=== PATIENT | male | born 1955 ===

== ENCOUNTER 2017-09-24 10:49 | Day surgery (SDC) | payer OTHER ==
[2017-09-21 13:35] VITALS: BMI 29.2
[2017-09-24] MEDS ORDERED: ceFAZolin 1 gm in NS 1 GM/100 ML BAG IVPB ONE (14:14)
[2017-09-24] MEDS ORDERED: Iohexol 240 (50 ml) ONE (14:14)
[2017-09-24] MEDS ORDERED: Oxycodone/Acetaminophen 5/325 mg Tab PO PRN (14:48)
[2017-09-24] MEDS ORDERED: Ciprofloxacin 400mg/200ml D5W 400 MG/200 ML BAG IVPB SCH (15:00)
[2017-09-24 16:04] VITALS: BP 127/78; RESP 16; TEMP 97
[2017-09-24 16:06] VITALS: PULSE 63; O2SAT 99
--- NOTE | 2017-09-25 17:09 | RAD ---
HISTORY: LEFT HYDRONEPHROSIS COMPARISON: No prior. FINDINGS: BOWEL: Normal. No obstruction. No free air. BONES: Normal. OTHER FINDINGS: None. IMPRESSION: No active disease.
--- NOTE | 2017-11-08 18:07 | HP ---
REASON FOR ADMISSION: For stent insertion. Stent insertion in the left kidney in preparation for surgical resection. HISTORY OF PRESENT ILLNESS: The patient is a very pleasant gentleman who presents with a mass in his scrotum. It looks essentially as a possible hydrocele. 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 I explained to the patient in detail, he will need surgical resection. Today, he is here just for a stent insertion and then he will need further surgery. PAST MEDICAL AND SURGICAL HISTORY: As follows: No history of NV or CVA. SOCIAL HISTORY: Essentially unremarkable. REVIEW OF SYSTEMS: Listed above. No weight loss, chest pain, or shortness of breath. No constitutional complaints (this is good news I ). My concern is again with this large mass. There are more concerns. See the plan listed below the addendum. The surgical PHYSICAL EXAMINATION: GENERAL: Well-developed, well-nourished male. In no apparent distress. VITAL SIGNS: Noted. NECK: No cervical or axillary lymphadenopathy. LUNGS: Clear. HEART: S1 and S2. ABDOMEN: Soft. There is no mass like effect easily felt. GENITOURINARY: His left hemiscrotum has a large solid mass that does not transilluminate light. The right hemiscrotum is relatively within normal limits. RECTAL: Fragile cyst mentioned now. It is a relatively normal prostate exam. DIAGNOSTIC DATA: CT scan, I had a chance to review the films at length. DIAGNOSES: Left hydronephrosis and a mass in the abdomen and pelvis, going down to the scrotum. PLAN: So at this time, we discussed options. Today, we are just placing a stent in preparation for surgical extirpation. My plan is to have general surgeon. I discussed this with the patient. I have to find a surgeon. The patient came to me from far away based on insurance reasons. I explained this to the patient in detail. The plan for today is a stent insertion, but afterwards, we need to get it quickly through a general surgeon and then make further recommendations and plans because he needs surgical exploration and removal urology assistance planning but we need general surgeon involved. ADDENDUM: See the operative note. Actually in fact it was so large, I was not even able to gain access and see the ureteral orifice and place the stent. Chad Barnes MD
--- NOTE | 2017-11-08 18:10 | OP ---
PROCEDURE DATE: 09/24/2017 PREOPERATIVE DIAGNOSES: Left hydronephrosis, abdominal mass, and scrotal mass. POSTOPERATIVE DIAGNOSES: Left hydronephrosis, abdominal mass, and scrotal mass. PROCEDURE: Cystoscopy and attempted insertion of a left double-J stent. COMPLICATIONS: There were no complications. BLOOD LOSS: Less than 10 mL. FINDINGS: 1. Normal anterior urethra. 2. No strictures. 3. It is too difficult even to get to the orifice and identify the mass and place the stent. See the plans at the end. INDICATIONS: See history and physical for this procedure. A very pleasant gentleman, who is here for cystoscopy and stent insertion, but we were not able to do such. The patient has a large mass that needs to be suctioned. We are planning to put a stent to protect the ureter, but in fact, we cannot even get in. DESCRIPTION OF PROCEDURE: After obtaining informed consent, the patient was placed on the table. Routine monitors were placed. Time-out was called. We confirmed the patient positioning. Cystoscope via the urethra. The patient came to me from far away actually. This have to do with insurance, in fact, while he was here before we started the procedure today, I offered him. He said to me do I know any urologist that are in his community or any general surgeons in his community. I explained to him that, in fact we should reconsider. That would may be beneficial for he and his . Then after discussing the options back and forth, he wanted to proceed. As I said, we placed the stent and then afterward, perhaps we will have him see another general surgeon and they can get a urologist at that time. After discussing although the options with the patient, he is now here for the above procedure. The cystoscope via the urethra. The anterior urethra is normal, and the prostatic verumontanum is visually occlusive, but there is a mass like effect pushing on the back. To the point that I could not push to gain access to the bladder itself. I tried gently, did not want to start bleeding. So at this point, after trying different positions, trying to adjust accordingly, I could not gain good access properly into the urinary bladder. We terminated the procedure. Overall, the patient tolerated the procedure well, but he needs further treatment. See the plans listed below. There were no complications at this point. ADDENDUM: The patient needs surgical extirpation. We need to get a general surgeon involved. I explained this to the patient in his [place]ian language after the procedure as well and then follow up. We will follow. Chad Barnes MD
== END 2017-09-24 16:04 | disposition home or self-care (01) ==
LOC: C.SDS 10:49
PROVIDERS: ATTEND Urology
DX: N13.30 Unspecified hydronephrosis (principal); R19.00 Intra-abdominal and pelvic swelling, mass and lump, unspecified site; I10 Essential (primary) hypertension
CPT/HCPCS: 52000; 74018; C1758; C1769; J0690; J0744

== ENCOUNTER 2017-11-21 11:59 | Inpatient (IN) | payer OTHER ==
[2017-11-21 11:59] VITALS: BMI 29.2
--- NOTE | 2017-11-21 12:41 | C.PDOC ---
History Of Present Illness 62yo male, presents to ED for evaluation of wrosening testicular pain since last night. Patient has had testicular swelling for the past 1.5 years, and swelling has been rapidly increasing since August of this year. Patient is being followed by Dr. Chela Barnes and patient is currently pending outpatient studies. Per family, the patient is also pending a "procedure" on an undetermined date. Patient reports presenting today due to unbearable pain. Patient states the pain is worse with walking and sitting but better when he is laying down. He denies any abdominal pain, nausea, vomiting, dysuria, hematuria , fever or chills. No other medical complaints. Time Seen by Provider: 11/21/17 12:33 Chief Complaint (Nursing): Male Genitourinary History Per: Patient, Family History/Exam Limitations: no limitations Onset/Duration Of Symptoms: Persistent, Worse Since (last night) Current Symptoms Are (Timing): Still Present Quality Of Discomfort: "Pain" Associated Symptoms: denies: Fever, Chills, Nausea, Vomiting, Diarrhea, Urinary Symptoms Past Medical History Reviewed: Historical Data, Nursing Documentation, Vital Signs Vital Signs: Last Vital Signs Temp 98.1 F 11/21/17 12:14 Pulse 79 11/21/17 12:14 Resp 20 11/21/17 12:14 BP 137/70 11/21/17 12:14 Pulse Ox 97 11/21/17 15:55 - Medical History PMH: HTN Denies: Chronic Kidney Disease Surgical History: No Surg Hx Family History: States: No Known Family Hx - Social History Hx Alcohol Use: No Hx Substance Use: No - Immunization History Hx Tetanus Toxoid Vaccination: No Hx Influenza Vaccination: No Hx Pneumococcal Vaccination: No Review Of Systems Except As Marked, All Systems Reviewed And Found Negative. Constitutional: Negative for: Fever, Chills Gastrointestinal: Negative for: Nausea, Vomiting, Abdominal Pain Genitourinary: Positive for: Other (testicular pain). Negative for: Dysuria, Frequency, Hematuria Physical Exam - Physical Exam Appears: Non-toxic, Other (mild painful distress) Skin: Normal Color, Warm, Dry Head: Normacephalic Eye(s): bilateral: Normal Inspection Neck: Normal ROM, Supple Chest: Symmetrical Cardiovascular: Rhythm Regular Respiratory: Normal Breath Sounds Gastrointestinal/Abdominal: Normal Exam, Soft, No Tenderness Male Genital: Testicular Tenderness (diffuse), Scrotal Swelling (canteloupe sized swelling, no erythema or lesions noted. ) Extremity: Normal ROM Neurological/Psych: Oriented x3 ED Course And Treatment - Laboratory Results Result Diagrams: 11/21/17 14:04 11/21/17 14:04 ECG: Interpreted By Me, Viewed By Me ECG Rhythm: Sinus Rhythm, 1st Degree HB ECG Interpretation: Normal Rate From EC O2 Sat by Pulse Oximetry: 97 (RA) Pulse Ox Interpretation: Normal Progress - Re-Evaluation Re-evaluation Note: 11/21/17 12:41 PENDING CALLBACK Chela BARNES 11/21/17 15:30 d/w dr chela barnes : admit to medicine, will consult for OR tomorrow 11/21/17 15:53 D/W DR COTTRELL MED FUR REPAIR INSPECTOR WILL ADMIT - Data Reviewed Data Reviewed: Lab, Diagnostic imaging, EKG, Old records - Continuity of Care Discussed patient case with:: Patient, Family-HIPPA compliant, On-call PMD-pt unassigned Discussed pt. case with employee relations consultant/specialty: Urology Medical Decision Making Medical Decision Making: Plan: -- Toradol 30mg IVP Disposition Counseled Patient/Family Regarding: Studies Performed, Diagnosis - Disposition Disposition: HOSPITALIZED Disposition Time: 15:54 Condition: STABLE - POA Present On Arrival: None - Clinical Impression Clinical Impression: Scrotal swelling, Scrotal pain - Scribe Statement The provider has reviewed the documentation as recorded by the Scribe (Annabella Casas) Provider Attestation: All medical record entries made by the Scribe were at my direction and personally dictated by me. I have reviewed the chart and agree that the record accurately reflects my personal performance of the history, physical exam, medical decision making, and the department course for this patient. I have also personally directed, reviewed, and agree with the discharge instructions and disposition. Decision To Admit - Pt Status Changed To: Hospital Disposition Of: Inpatient - Admit Certification Admit to Inpatient:: After my assessment, the patient will require hospitalization for at least two midnights. This is because of the severity of symptoms shown, intensity of services needed, and/or the medical risk in this patient being treated as an outpatient. - InPatient: Physician Admission Certification: I certify that this patient requires 2 or more midnights of care for the following reason:: SEE NOTE - . Bed Request Type: Regular Admitting Physician: Dell Cottrell Patient Diagnosis: Scrotal swelling, Scrotal pain
[2017-11-21 14:11] LABS: BASO % 0.7 % (0.0-2.0); EOS # 0.1 K/uL (0.0-0.7); HEMOGLOBIN 12.8 g/dL (12.0-18.0); LYMPH # 1.5 K/uL (1.0-4.3); LYMPH % 21.2 % (20.0-40.0); MEAN CELL VOLUME 83.7 fL (80.0-94.0); MEAN CORPUSCULAR HEMOGLOBIN 27.9 pg (27.0-31.0); MEAN CORPUSCULAR HGB CONC 33.3 g/dL (33.0-37.0); MEAN PLATELET VOLUME 10.2 fL (7.2-11.7); MONO # 0.6 K/uL (0.0-0.8); NEUT # 4.8 K/uL (1.8-7.0); NEUT % 67.1 % (50.0-75.0); RBC 4.58 Mil/uL (4.40-5.90); RED CELL DISTRIBUTION WIDTH 13.7 % (11.5-14.5); WHITE BLOOD COUNT 7.2 K/uL (4.8-10.8)
[2017-11-21 14:23] LABS: BLOOD UREA NITROGEN 15 mg/dL (9-20); CALCIUM 8.9 mg/dl (8.6-10.4); GFR AFRICAN-AMERICAN > 60; GFR NON-AFRICAN AMERICAN > 60
[2017-11-21 14:51] LABS: URINE BILIRUBIN NEGATIVE (NEGATIVE); URINE BLOOD NEGATIVE (NEGATIVE); URINE CLARITY Clear (Clear); URINE COLOR Yellow (YELLOW); URINE GLUCOSE (UA) NORMAL (Normal); URINE LEUKOCYTE ESTERASE NEG Leu/uL (Negative); URINE PROTEIN NEGATIVE (NEGATIVE); URINE UROBILINOGEN NORMAL mg/dL (0.2-1.0)
--- NOTE | 2017-11-21 18:57 | RAD ---
PROCEDURE: CHEST RADIOGRAPH, 1 VIEW HISTORY: Medical clearance COMPARISON: None available. FINDINGS: LUNGS: Clear. PLEURA: No pneumothorax or pleural fluid seen. CARDIOVASCULAR: Normal. OSSEOUS STRUCTURES: Minor multilevel degenerative spondylosis of the thoracic spine the. Mild degenerative changes both acromioclavicular joints and left glenohumeral joint. No significant abnormalities. VISUALIZED UPPER ABDOMEN: Normal. OTHER FINDINGS: None. IMPRESSION: No active disease.
[2017-11-21] MEDS: Ciprofloxacin 400mg/200ml D5W 400 MG/200 ML BAG IVPB SCH (19:00)
--- NOTE | 2017-11-21 23:31 | CP.PCM.HP ---
History of Present Illness - History of Present Illness History of Present Illness: 62yo male, presents to ED for evaluation of wrosening testicular pain since last night. Patient has had testicular swelling for the past 1.5 years, and swelling has been rapidly increasing since August of this year. Patient is being followed by Dr. Chela Barnes and patient is currently pending outpatient studies. Per family, the patient is also pending a "procedure" on an undetermined date. Patient reports presenting today due to unbearable pain. Patient states the pain is worse with walking and sitting but better when he is laying down. He denies any abdominal pain, nausea, vomiting, dysuria, hematuria , fever or chills. No other medical complaints. Past Patient History - Past Medical History & Family History Past Medical History?: Yes - Past Social History Smoking Status: Never Smoked - CARDIAC Hx Hypertension: Yes - PULMONARY Hx Respiratory Disorders: No - NEUROLOGICAL Hx Neurological Disorder: No - HEENT Hx HEENT Problems: No - RENAL Hx Chronic Kidney Disease: No - ENDOCRINE/METABOLIC Hx Endocrine Disorders: No - HEMATOLOGICAL/ONCOLOGICAL Hx Blood Disorders: No - INTEGUMENTARY Hx Dermatological Problems: No - MUSCULOSKELETAL/RHEUMATOLOGICAL Hx Falls: No - GASTROINTESTINAL Hx Gastrointestinal Disorders: No - GENITOURINARY/GYNECOLOGICAL Hx Genitourinary Disorders: Yes Hx Prostate Problems: Yes Other/Comment: hydronephrosis. scrotal edema x 1year - PSYCHIATRIC Hx Substance Use: No - SURGICAL HISTORY Hx Surgeries: No - ANESTHESIA Hx Anesthesia: No Hx Anesthesia Reactions: No Hx Malignant Hyperthermia: No Has any member of the family had a problem w/ anesthesia?: No Meds Allergies/Adverse Reactions: Allergies Allergy/AdvReac Type Severity Reaction Status Date / Time No Known Allergies Allergy Verified 09/24/17 11:27 Results - Vital Signs Recent Vital Signs: Last Vital Signs Temp 98.5 F 11/21/17 17:20 Pulse 70 11/21/17 17:20 Resp 20 11/21/17 17:20 BP 153/85 H 11/21/17 17:20 Pulse Ox 97 11/21/17 19:24 - Labs Result Diagrams: 11/21/17 14:04 11/21/17 14:04 Labs: Laboratory Results - last 24 hr 11/21/17 11/21/17 11/21/17 14:04 14:04 14:42 WBC 7.2 RBC 4.58 Hgb 12.8 Hct 38.3 MCV 83.7 MCH 27.9 MCHC 33.3 RDW 13.7 Plt Count 145 MPV 10.2 Neut % (Auto) 67.1 Lymph % (Auto) 21.2 [place] % (Auto) 9.0 Eos % (Auto) 2.0 Baso % (Auto) 0.7 Neut # (Auto) 4.8 Lymph # (Auto) 1.5 [place] # (Auto) 0.6 Eos # (Auto) 0.1 Baso # (Auto) 0.0 Sodium 138 Potassium 3.8 Chloride 101 Carbon Dioxide 27 Anion Gap 14 BUN 15 Creatinine 0.9 Est GFR ( Amer) > 60 Est GFR (Non-Af Amer) > 60 Random Glucose 87 Calcium 8.9 Urine Color Yellow Urine Clarity Clear Urine pH 6.0 Ur Specific [place] 1.013 Urine Protein Negative Urine Glucose (UA) Normal Urine Ketones Negative Urine Blood Negative Urine Nitrate Negative Urine Bilirubin Negative Urine Urobilinogen Normal Ur Leukocyte Esterase Neg Urine WBC (Auto) 1 Urine RBC (Auto) 1
[2017-11-22] MEDS: Ciprofloxacin 400mg/200ml D5W 400 MG/200 ML BAG IVPB SCH ×2 (05:59→19:00)
--- NOTE | 2017-11-22 09:45 | US ---
Testicular ultrasound History: Testicular pain. Comparison: None available. Technique: Real-time sonography was performed through the scrotum with color Doppler and image documentation. Findings: Right testes: 3.9 x 1.3 x 2.5 centimeters. Heterogeneous echotexture. Normal flow. Right epididymis measures 8 x 7 x 10 millimeters. Normal flow. Small epididymal head cyst. No hydrocele. Right testicular varicocele measuring up to 4.4 millimeters. Left testes: 4.1 x 1.4 x 2.3 centimeters. Heterogeneous echotexture. Normal flow. Left epididymis measures 10 x 5 x 7 millimeters. Small left scrotal hydrocele. Left scrotal varicocele measuring up to 4.4 millimeters. 5.6 x 1.2 x 4.5 centimeter echogenic structure lateral to the left testicle suggestive for possible fat and/or hernia and or additional etiology. Prominent left scrotal skin thickening. Impression: 1. Prominent left scrotal skin thickening. Clinical correlation. 2. Small left scrotal hydrocele. 3. Prominent 5.6 centimeter echogenic possible fatty mass in the left scrotum. This is of uncertain clinical etiology and may represent a hernia. This may be better evaluated with CT scan if clinically indicated. 4. Bilateral varicoceles; left greater than right. These findings were preliminarily reported at 7:48 p.m. on 11/21/[address] Loreta Fuentes from [facility].
[2017-11-22] MEDS: Enoxaparin 40 mg Syringe SC SCH (10:15)
[2017-11-22] MEDS: Metoprolol Succinate 50 mg XL Tab PO SCH (10:20)
--- NOTE | 2017-11-22 11:47 | PCM.URO ---
Urology Progress Note - Objective Lab Studies: Reviewed (dx: scrotal mass/ abdominal mass plans: surgical removal -- pt will need consultation with surgery he will require explorotory laportomy with general surgeon full note to be dictated thanks for consult) Lab Results Last 24 Hours: Laboratory Results - last 24 hr 11/21/17 11/21/17 11/21/17 14:04 14:04 14:42 WBC 7.2 RBC 4.58 Hgb 12.8 Hct 38.3 MCV 83.7 MCH 27.9 MCHC 33.3 RDW 13.7 Plt Count 145 MPV 10.2 Neut % (Auto) 67.1 Lymph % (Auto) 21.2 [place] % (Auto) 9.0 Eos % (Auto) 2.0 Baso % (Auto) 0.7 Neut # (Auto) 4.8 Lymph # (Auto) 1.5 [place] # (Auto) 0.6 Eos # (Auto) 0.1 Baso # (Auto) 0.0 Sodium 138 Potassium 3.8 Chloride 101 Carbon Dioxide 27 Anion Gap 14 BUN 15 Creatinine 0.9 Est GFR ( Amer) > 60 Est GFR (Non-Af Amer) > 60 Random Glucose 87 Calcium 8.9 Urine Color Yellow Urine Clarity Clear Urine pH 6.0 Ur Specific [place] 1.013 Urine Protein Negative Urine Glucose (UA) Normal Urine Ketones Negative Urine Blood Negative Urine Nitrate Negative Urine Bilirubin Negative Urine Urobilinogen Normal Ur Leukocyte Esterase Neg Urine WBC (Auto) 1 Urine RBC (Auto) 1 Intake & Output: Intake & Output 11/21/17 11/22/17 11/22/17 18:59 06:59 18:59 Intake Total 500 Balance 500 Weight 180 lb Intake: Intake, IV Amount 200 Left Antecubital 200 Oral 300 Other: # Voids Urine, Voided 2 # Bowel Movements 0 Vital Signs: Vital Signs - 24 hr 11/21/17 11/21/17 11/21/17 12:14 16:16 16:59 Temperature 98.1 F Pulse Rate 79 68 Respiratory 20 18 Rate Blood Pressure 137/70 159/86 H O2 Sat by Pulse 97 97 94 L Oximetry 11/21/17 11/21/17 11/22/17 17:20 19:24 00:01 Temperature 98.5 F 98.1 F Pulse Rate 70 60 Respiratory 20 20 Rate Blood Pressure 153/85 H 131/75 O2 Sat by Pulse 98 97 97 Oximetry 11/22/17 08:22 Temperature 98 F Pulse Rate 83 Respiratory 20 Rate Blood Pressure 148/83 O2 Sat by Pulse 97 Oximetry
[2017-11-22] MEDS ORDERED: Iohexol 240 (50 ml) PO ONE (13:30)
--- NOTE | 2017-11-22 14:21 | CP.PCM.CON ---
History of Present Illness - History of Present Illness History of Present Illness: General Surgery Consult: Dr. Nixon The patient is a 62yo M w/ PMH of HTN, that presents with scrotal swelling for the last 1.5 years that has progressively worsened since August of this year. The patient reports that the swelling has started to cause him pain with ambulation. The patient reports that nothing has made it better or worse in the last year. The patient denies urinary obstructive symptoms, dysuria, polyuria, urinary urgency, masses or bulges on his abdomen, abd pain, n/v/f/c, chest pain , shortness of breath. PMH: HTN PSH: Denies Allergies: NKDA Meds: Metoprolol, Lisinopril/HCTZ Social: denies nicotine, illicit drug use, occasional EtOH use Review of Systems - Review of Systems All systems: reviewed and no additional remarkable complaints except - Constitutional Constitutional: absent: Chills, Fever, Weight Gain, Weight Loss - Cardiovascular Cardiovascular: absent: Chest Pain, Chest Pain at Rest, Dyspnea, Pedal Edema - Gastrointestinal Gastrointestinal: absent: Abdominal Pain, Bloating, Change in Bowel Habits, Change in Stool Character, Constipation, Cramping, Diarrhea, Nausea, Vomiting - Genitourinary Genitourinary: absent: Change in Urinary Stream, Difficulty Urinating, Dysuria, Flank Pain, Hematuria, Pyuria, Urinary Incontinence, Urinary Frequency, Urinary Hesitance, Urinary Urgency - Reproductive: Male Additional comments: Scrotal Swelling w/ pain Past Patient History - Past Medical History & Family History Past Medical History?: Yes - Past Social History Smoking Status: Never Smoked - CARDIAC Hx Hypertension: Yes - PULMONARY Hx Respiratory Disorders: No - NEUROLOGICAL Hx Neurological Disorder: No - HEENT Hx HEENT Problems: No - RENAL Hx Chronic Kidney Disease: No - ENDOCRINE/METABOLIC Hx Endocrine Disorders: No - HEMATOLOGICAL/ONCOLOGICAL Hx Blood Disorders: No - INTEGUMENTARY Hx Dermatological Problems: No - MUSCULOSKELETAL/RHEUMATOLOGICAL Hx Falls: No - GASTROINTESTINAL Hx Gastrointestinal Disorders: No - GENITOURINARY/GYNECOLOGICAL Hx Genitourinary Disorders: Yes Hx Prostate Problems: Yes Other/Comment: hydronephrosis. scrotal edema x 1year - PSYCHIATRIC Hx Substance Use: No - SURGICAL HISTORY Hx Surgeries: No - ANESTHESIA Hx Anesthesia: No Hx Anesthesia Reactions: No Hx Malignant Hyperthermia: No Has any member of the family had a problem w/ anesthesia?: No Meds Allergies/Adverse Reactions: Allergies Allergy/AdvReac Type Severity Reaction Status Date / Time No Known Allergies Allergy Verified 09/24/17 11:27 - Medications Medications: Current Medications Enoxaparin Sodium (Lovenox) 40 mg SC DAILY [facility] Last Admin: 11/22/17 10:15 Dose: 40 mg Hydrochlorothiazide (Hydrodiuril) 25 mg PO DAILY [facility] Last Admin: 11/22/17 10:15 Dose: 25 mg Ciprofloxacin (Cipro 400mg/200ml Dsw) 400 mg in 200 mls @ 133 mls/hr IVPB Q12H [facility] PRN Reason: Protocol Last Admin: 11/22/17 05:59 Dose: 133 mls/hr Lisinopril (Zestril) 20 mg PO DAILY [facility] Last Admin: 11/22/17 10:20 Dose: 20 mg Metoprolol Succinate (Toprol Xl) 50 mg PO DAILY [facility] Last Admin: 11/22/17 10:20 Dose: 50 mg Pneumococcal Polyvalent Vaccine (Pneumovax 23 Vaccine) 0.5 ml IM .ONCE ONE Stop: 11/23/17 10:01 Physical Exam - Constitutional Appears: Well, Non-toxic, No Acute Distress - Head Exam Head Exam: ATRAUMATIC, NORMOCEPHALIC - Eye Exam Eye Exam: Normal appearance - ENT Exam ENT Exam: Mucous Membranes Moist - Respiratory Exam Respiratory Exam: NORMAL BREATHING PATTERN - GI/Abdominal Exam GI & Abdominal Exam: Normal Bowel Sounds, Soft. absent: Distended, Firm, Guarding, Hernia, Mass, Rigid, Tenderness - Rectal Exam Rectal Exam: Deferred - Exam Exam: Scrotal Swelling, Testicular Tenderness - Extremities Exam Extremities exam: Negative for: pedal edema - Neurological Exam Neurological exam: Alert, Oriented x3 - Psychiatric Exam Psychiatric exam: Normal Affect, Normal Mood - Skin Skin Exam: Dry, Intact, Normal Color, Warm Results - Vital Signs Recent Vital Signs: Last Vital Signs Temp 98 F 11/22/17 08:22 Pulse 83 11/22/17 08:22 Resp 20 11/22/17 08:22 BP 148/83 11/22/17 08:22 Pulse Ox 97 11/22/17 08:22 - Labs Result Diagrams: 11/21/17 14:04 11/21/17 14:04 Labs: Laboratory Results - last 24 hr 11/21/17 11/21/17 11/21/17 14:04 14:04 14:42 WBC 7.2 RBC 4.58 Hgb 12.8 Hct 38.3 MCV 83.7 MCH 27.9 MCHC 33.3 RDW 13.7 Plt Count 145 MPV 10.2 Neut % (Auto) 67.1 Lymph % (Auto) 21.2 [place] % (Auto) 9.0 Eos % (Auto) 2.0 Baso % (Auto) 0.7 Neut # (Auto) 4.8 Lymph # (Auto) 1.5 [place] # (Auto) 0.6 Eos # (Auto) 0.1 Baso # (Auto) 0.0 Sodium 138 Potassium 3.8 Chloride 101 Carbon Dioxide 27 Anion Gap 14 BUN 15 Creatinine 0.9 Est GFR ( Amer) > 60 Est GFR (Non-Af Amer) > 60 Random Glucose 87 Calcium 8.9 Urine Color Yellow Urine Clarity Clear Urine pH 6.0 Ur Specific [place] 1.013 Urine Protein Negative Urine Glucose (UA) Normal Urine Ketones Negative Urine Blood Negative Urine Nitrate Negative Urine Bilirubin Negative Urine Urobilinogen Normal Ur Leukocyte Esterase Neg Urine WBC (Auto) 1 Urine RBC (Auto) 1 Assessment & Plan - Assessment and Plan (Free Text) Assessment: 62yo M with scrotal edema vs mass Plan: -f/u CT AP for further evaluation of scrotal edema vs mass -f/u Urology recommendations -continue med recommendations -will discuss with attending Dr. Hussain Saucedo, PGY3 - Date & Time Date: 11/22/17 Time: 14:31
[2017-11-22] MEDS ORDERED: Iohexol 300 100 ML IJ ONE (16:10)
--- NOTE | 2017-11-22 17:05 | CT ---
PROCEDURE: CT Abdomen and Pelvis with contrast HISTORY: large abdominal mass / COMPARISON: None. TECHNIQUE: Following oral and intravenous contrast administration, a CT examination of the abdomen and pelvis performed from the domes of the diaphragms to the symphysis pubis with reformatted datasets provided not only axial but also sagittal and coronal series. Contrast dose: Omnipaque 300, 100 cc. Radiation dose: Total exam DLP = 999.68 mGy-cm. This CT exam was performed using one or more of the following dose reduction techniques: Automated exposure control, adjustment of the mA and/or kV according to patient size, and/or use of iterative reconstruction technique. FINDINGS: LOWER THORAX: Small hiatal hernia is identified with remainder unremarkable. LIVER: Diminished attenuation throughout the liver is compatible with hepatic steatosis. No definite mass or intrahepatic biliary tree dilatation identified. GALLBLADDER AND BILE DUCTS: Contracted. No radiodense cholelithiasis. PANCREAS: Unremarkable. No gross lesion or ductal dilatation. SPLEEN: Unremarkable. ADRENALS: Unremarkable. No mass. KIDNEYS AND URETERS: Moderate left hydroureteronephrosis is appreciated caused by a largely fatty tumor at the left renetta abdomen/ left lower quadrant abdomen. No right-sided obstructive uropathy. Urinary bladder is displaced toward the right and partially compressed by this same mass. VASCULATURE: Unremarkable. No aortic aneurysm. BOWEL: The bowel is not appear obstructed at this time however compression narrows the entire sigmoid epidural upper rectum. Opacified small bowel loops are unremarkable but all bowel has been displaced into the periphery by the left left renetta abdominal/pelvic mass. Other than a minimal hiatal hernia, the stomach is unremarkable appearing. APPENDIX: The appendix not clearly identified with no definite CT pattern suggest appendicitis at this time. PERITONEUM: At the left lower quadrant extending over to the medial portion of the right lower quadrant and inferiorly through the inguinal canal and into the left hemiscrotum is a large predominately fatty mass measuring 18.1 x 14.9 x 36.4 cm (transverse by anteroposterior by superoinferior dimensions). Ground-glass opacities associated with the heterogeneous appearance of this mass with hypervascular changes and small nodular areas of prominent enhancement scattered infrequently throughout the mass. A varicocele is suggested at the base of the left hemiscrotum likely secondary to the mass. This implies appears. Connective tissue tumor such as a liposarcoma and tissue diagnosis is advised. LYMPH NODES: Limited left pelvic sidewall lymphadenopathy is appreciated including inferior left pelvic lymph node measuring 3.5 x 1.9 cm. BLADDER: See renal section above. REPRODUCTIVE: Unremarkable. BONES: No acute fracture. OTHER FINDINGS: None. IMPRESSION: A large heterogeneous but predominate fatty mass is seen involving the inferior abdomen, left greater than right with extension through the left inguinal canal into the left hemiscrotum, enlarging it. Enhancing nodular foci are associated the because of the primary fatty the composition, is felt to represent a connective tissue mass such is a liposarcoma though others are possible. Tissue diagnosis is advised for additional evaluation. The mass impresses or encases the distal left ureter resulting in moderate left hydronephrosis and also cause the hydrocele in the base of the left hemiscrotum. Urinary bladder is displaced rightward in the pelvis and the sigmoid colon and proximal rectum are compressed as well though without bowel obstruction at this time.
--- NOTE | 2017-11-22 23:10 | CP.PCM.PN ---
Subjective - Date & Time of Evaluation Date of Evaluation: 11/22/17 Time of Evaluation: 18:30 - Subjective Subjective: Pt seen and evaluated at bedside, - Objective - Vital Signs/Intake and Output Vital Signs (last 24 hours): Temp Pulse Resp BP Pulse Ox 98.7 F 74 20 131/81 97 11/22/17 15:56 11/22/17 15:56 11/22/17 15:56 11/22/17 15:56 11/22/17 15:56 Intake and Output: 11/22/17 11/23/17 18:59 06:59 Intake Total 1200 Balance 1200 - Medications Medications: Current Medications Enoxaparin Sodium (Lovenox) 40 mg SC DAILY [facility] Last Admin: 11/22/17 10:15 Dose: 40 mg Hydrochlorothiazide (Hydrodiuril) 25 mg PO DAILY [facility] Last Admin: 11/22/17 10:15 Dose: 25 mg Ciprofloxacin (Cipro 400mg/200ml Dsw) 400 mg in 200 mls @ 133 mls/hr IVPB Q12H [facility] PRN Reason: Protocol Last Admin: 11/22/17 19:00 Dose: 133 mls/hr Lisinopril (Zestril) 20 mg PO DAILY [facility] Last Admin: 11/22/17 10:20 Dose: 20 mg Metoprolol Succinate (Toprol Xl) 50 mg PO DAILY [facility] Last Admin: 11/22/17 10:20 Dose: 50 mg Pneumococcal Polyvalent Vaccine (Pneumovax 23 Vaccine) 0.5 ml IM .ONCE ONE Stop: 11/23/17 10:01 - Labs Labs: 11/21/17 14:04 11/21/17 14:04 Assessment and Plan (1) Scrotal pain Assessment & Plan: Assessment and Plan (Free Text) Assessment: 62yo M with scrotal edema vs mass Plan: -f/u CT AP for further evaluation of scrotal edema vs mass -f/u Urology recommendations -continue med recommendations -will discuss with attending Dr. Nixon Status: Acute (2) Scrotal swelling Status: Acute
--- NOTE | 2017-11-23 05:11 | PCM.URO ---
Urology Progress Note - Objective Lab Studies: Reviewed (dx: abdomianl mass, causing hydronephrosis plans : await surgical input , suggest explorotory laporotomy, unlikely to be able to stent the pt, we tried previously) Intake & Output: Intake & Output 11/22/17 11/22/17 11/23/17 06:59 18:59 06:59 Intake Total 500 1200 Balance 500 1200 Intake: Intake, IV Amount 200 Left Antecubital 200 Oral 300 1200 Other: # Voids Urine, Voided 2 4 # Bowel Movements 0 2 Vital Signs: Vital Signs - 24 hr 11/22/17 11/22/17 11/22/17 08:22 15:12 15:56 Temperature 98 F 98.7 F Pulse Rate 83 83 74 Respiratory 20 20 Rate Blood Pressure 148/83 148/83 131/81 O2 Sat by Pulse 97 97 97 Oximetry 11/23/17 00:00 Temperature 98.3 F Pulse Rate 67 Respiratory 20 Rate Blood Pressure 115/68 O2 Sat by Pulse 98 Oximetry
[2017-11-23] MEDS: Ciprofloxacin 400mg/200ml D5W 400 MG/200 ML BAG IVPB SCH ×2 (06:01→19:00)
--- NOTE | 2017-11-23 07:58 | CARD ---
APPROVED REPORT EKG Measurement Heart [id number] <Conclusion> Sinus rhythm with sinus arrhythmia with 1st degree AV block Otherwise normal ECG
[2017-11-23 08:18] LABS: HEMOGLOBIN 13.5 g/dL (12.0-18.0); MEAN CELL VOLUME 84.6 fL (80.0-94.0); MEAN CORPUSCULAR HEMOGLOBIN 28.2 pg (27.0-31.0); MEAN CORPUSCULAR HGB CONC 33.3 g/dL (33.0-37.0); MEAN PLATELET VOLUME 10.6 fL (7.2-11.7); RBC 4.78 Mil/uL (4.40-5.90); RED CELL DISTRIBUTION WIDTH 13.7 % (11.5-14.5); WHITE BLOOD COUNT 6.4 K/uL (4.8-10.8)
[2017-11-23 08:31] LABS: BLOOD UREA NITROGEN 16 mg/dL (9-20); GFR AFRICAN-AMERICAN > 60; GFR NON-AFRICAN AMERICAN > 60
[2017-11-23] MEDS: Metoprolol Succinate 50 mg XL Tab PO SCH (09:24)
[2017-11-23] MEDS: Enoxaparin 40 mg Syringe SC SCH (09:29)
[2017-11-23] MEDS ORDERED: Pneumococcal 23-Valent Vaccine IM ONE (10:00)
--- NOTE | 2017-11-23 13:59 | CP.PCM.PN ---
Subjective - Date & Time of Evaluation Date of Evaluation: 11/23/17 Time of Evaluation: 07:10 - Subjective Subjective: Pt seen and examined this AM. No adverse events overnight. Patient denies any abdominal pain, nausea, or vomiting. Objective - Vital Signs/Intake and Output Vital Signs (last 24 hours): Temp Pulse Resp BP Pulse Ox 98.7 F 73 20 126/74 97 11/23/17 08:01 11/23/17 08:01 11/23/17 08:01 11/23/17 08:01 11/23/17 08:01 Intake and Output: 11/23/17 11/23/17 06:59 18:59 Intake Total 560 Balance 560 - Medications Medications: Current Medications Enoxaparin Sodium (Lovenox) 40 mg SC DAILY [facility] Last Admin: 11/23/17 09:29 Dose: 40 mg Hydrochlorothiazide (Hydrodiuril) 25 mg PO DAILY [facility] Last Admin: 11/23/17 09:23 Dose: 25 mg Ciprofloxacin (Cipro 400mg/200ml Dsw) 400 mg in 200 mls @ 133 mls/hr IVPB Q12H [facility] PRN Reason: Protocol Last Admin: 11/23/17 06:01 Dose: 133 mls/hr Lisinopril (Zestril) 20 mg PO DAILY [facility] Last Admin: 11/23/17 09:23 Dose: 20 mg Metoprolol Succinate (Toprol Xl) 50 mg PO DAILY [facility] Last Admin: 11/23/17 09:24 Dose: 50 mg - Labs Labs: 11/23/17 08:00 11/23/17 08:00 - Constitutional Appears: Well, Non-toxic, No Acute Distress - Head Exam Head Exam: ATRAUMATIC, NORMOCEPHALIC - Eye Exam Eye Exam: Normal appearance. absent: Conjunctival injection, Scleral icterus - ENT Exam ENT Exam: Mucous Membranes Moist, Normal Oropharynx - Respiratory Exam Respiratory Exam: NORMAL BREATHING PATTERN. absent: Accessory Muscle Use, Respiratory Distress - Cardiovascular Exam Cardiovascular Exam: RRR - GI/Abdominal Exam GI & Abdominal Exam: Distended, Soft, Mass (firm mass palpated BL lower quadrants RLQ>[id number]). 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 Recommend IR biopsy vs referring patient to a tertiary center for biopsy and further surgical planning given the complex nature of the mass and fear of seeding liposarcoma -PRN pain and nausea medication -Continue medical management per primary -Continue to follow up urology recs Discussed with Dr. Hussain Sapp, PGY2
--- NOTE | 2017-11-23 23:15 | CP.PCM.PN ---
Subjective - Date & Time of Evaluation Date of Evaluation: 11/23/17 Time of Evaluation: 17:35 - Subjective Subjective: PT SEEN AND EXAMINED, NO NAUSEA, VOMITTING, AFEBRILE Objective - Vital Signs/Intake and Output Vital Signs (last 24 hours): Temp Pulse Resp BP Pulse Ox 98.3 F 70 20 132/80 97 11/23/17 15:00 11/23/17 15:00 11/23/17 15:00 11/23/17 15:00 11/23/17 15:00 - Medications Medications: Current Medications Enoxaparin Sodium (Lovenox) 40 mg SC DAILY [facility] Last Admin: 11/23/17 09:29 Dose: 40 mg Hydrochlorothiazide (Hydrodiuril) 25 mg PO DAILY [facility] Last Admin: 11/23/17 09:23 Dose: 25 mg Ciprofloxacin (Cipro 400mg/200ml Dsw) 400 mg in 200 mls @ 133 mls/hr IVPB Q12H [facility] PRN Reason: Protocol Last Admin: 11/23/17 19:00 Dose: 133 mls/hr Lisinopril (Zestril) 20 mg PO DAILY [facility] Last Admin: 11/23/17 09:23 Dose: 20 mg Metoprolol Succinate (Toprol Xl) 50 mg PO DAILY [facility] Last Admin: 11/23/17 09:24 Dose: 50 mg - Labs Labs: 11/23/17 08:00 11/23/17 08:00 Assessment and Plan (1) Scrotal pain Assessment & Plan: Assessment: 62M with intra-abdominal mass extending into BL scrotum CT abdomen and pelvis: large heterogenous inferior abdominal 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 Recommend IR biopsy vs referring patient to a tertiary center for biopsy and further surgical planning given the complex nature of the mass and fear of seeding liposarcoma -PRN pain and nausea medication -Continue medical management per primary -Continue to follow up urology recs Status: Acute (2) Scrotal swelling Status: Acute
[2017-11-24] MEDS: Ciprofloxacin 400mg/200ml D5W 400 MG/200 ML BAG IVPB SCH ×2 (06:01→18:32)
[2017-11-24] MEDS: Enoxaparin 40 mg Syringe SC SCH (09:42)
[2017-11-24] MEDS: Metoprolol Succinate 50 mg XL Tab PO SCH (09:43)
--- NOTE | 2017-11-24 23:42 | CP.PCM.PN ---
Subjective - Date & Time of Evaluation Date of Evaluation: 11/24/17 Time of Evaluation: 18:35 - Subjective Subjective: pT SEEN AND EXAMINED, HE IS DROWSY, LESS SHORT OF BREATH, ON NEBULIZER TREATMENT , HIS RESPONSES APPROPRIATE Objective - Vital Signs/Intake and Output Vital Signs (last 24 hours): Temp Pulse Resp BP Pulse Ox 98.1 F 98 H 20 118/68 99 11/24/17 16:00 11/24/17 16:00 11/24/17 16:00 11/24/17 16:00 11/24/17 16:00 Intake and Output: 11/24/17 11/25/17 18:59 06:59 Intake Total 500 Balance 500 - Medications Medications: Current Medications Enoxaparin Sodium (Lovenox) 40 mg SC DAILY [facility] Last Admin: 11/24/17 09:42 Dose: 40 mg Hydrochlorothiazide (Hydrodiuril) 25 mg PO DAILY [facility] Last Admin: 11/24/17 09:43 Dose: 25 mg Lisinopril (Zestril) 20 mg PO DAILY [facility] Last Admin: 11/24/17 09:43 Dose: 20 mg Metoprolol Succinate (Toprol Xl) 50 mg PO DAILY [facility] Last Admin: 11/24/17 09:43 Dose: 50 mg - Labs Labs: 11/23/17 08:00 11/23/17 08:00 Assessment and Plan (1) Scrotal pain Status: Acute (2) Scrotal swelling Status: Acute
[2017-11-25 08:58] LABS: BASO % 0.4 % (0.0-2.0); EOS # 0.3 K/uL (0.0-0.7); HEMOGLOBIN 14.2 g/dL (12.0-18.0); LYMPH # 1.4 K/uL (1.0-4.3); LYMPH % 19.6 % (20.0-40.0); MEAN CELL VOLUME 84.6 fL (80.0-94.0); MEAN CORPUSCULAR HEMOGLOBIN 28.4 pg (27.0-31.0); MEAN CORPUSCULAR HGB CONC 33.5 g/dL (33.0-37.0); MEAN PLATELET VOLUME 10.3 fL (7.2-11.7); MONO # 0.7 K/uL (0.0-0.8); MONO % 10.8 % (0.0-10.0); NEUT # 4.5 K/uL (1.8-7.0); NEUT % 65.2 % (50.0-75.0); NRBC % 0.1 % (0.0-2.0); RBC 5.01 Mil/uL (4.40-5.90); RED CELL DISTRIBUTION WIDTH 13.8 % (11.5-14.5); WHITE BLOOD COUNT 6.9 K/uL (4.8-10.8)
[2017-11-25] MEDS: Enoxaparin 40 mg Syringe SC SCH (09:18)
[2017-11-25] MEDS: Metoprolol Succinate 50 mg XL Tab PO SCH (09:18)
[2017-11-25 09:25] LABS: ALBUMIN 4.1 g/dL (3.5-5.0); ALT/SGPT 19 U/L (21-72); AST/SGOT 25 U/L (17-59); BLOOD UREA NITROGEN 21 mg/dL (9-20); CALCIUM 9.2 mg/dl (8.6-10.4); GFR AFRICAN-AMERICAN > 60; GFR NON-AFRICAN AMERICAN > 60
[2017-11-25] MEDS: Potassium Chloride 20 mEq ER Tab PO SCH ×2 (11:33→17:00)
--- NOTE | 2017-11-25 23:34 | CP.PCM.PN ---
Subjective - Date & Time of Evaluation Date of Evaluation: 11/25/17 Time of Evaluation: 16:45 - Subjective Subjective: Pt seen and examined at bedside Objective - Vital Signs/Intake and Output Vital Signs (last 24 hours): Temp Pulse Resp BP Pulse Ox 98.2 F 86 20 120/70 98 11/25/17 16:00 11/25/17 16:00 11/25/17 16:00 11/25/17 16:00 11/25/17 16:00 Intake and Output: 11/25/17 11/26/17 18:59 06:59 Intake Total 600 360 Balance 600 360 - Medications Medications: Current Medications Enoxaparin Sodium (Lovenox) 40 mg SC DAILY [facility] Last Admin: 11/25/17 09:18 Dose: 40 mg Hydrochlorothiazide (Hydrodiuril) 25 mg PO DAILY [facility] Last Admin: 11/25/17 09:18 Dose: 25 mg Lisinopril (Zestril) 20 mg PO DAILY [facility] Last Admin: 11/25/17 09:18 Dose: 20 mg Metoprolol Succinate (Toprol Xl) 50 mg PO DAILY [facility] Last Admin: 11/25/17 09:18 Dose: 50 mg - Labs Labs: 11/25/17 08:48 11/25/17 08:48 Assessment and Plan (1) Scrotal pain Status: Acute (2) Scrotal swelling Status: Acute
[2017-11-26 07:25] LABS: BASO % 0.6 % (0.0-2.0); EOS # 0.3 K/uL (0.0-0.7); EOS % 4.1 % (0.0-4.0); HEMOGLOBIN 13.7 g/dL (12.0-18.0); LYMPH # 1.6 K/uL (1.0-4.3); MEAN CORPUSCULAR HEMOGLOBIN 28.4 pg (27.0-31.0); MEAN CORPUSCULAR HGB CONC 33.8 g/dL (33.0-37.0); MEAN PLATELET VOLUME 10.2 fL (7.2-11.7); MONO # 0.7 K/uL (0.0-0.8); MONO % 11.3 % (0.0-10.0); NEUT # 3.9 K/uL (1.8-7.0); NRBC % 0.1 % (0.0-2.0); RBC 4.83 Mil/uL (4.40-5.90); RED CELL DISTRIBUTION WIDTH 13.5 % (11.5-14.5); WHITE BLOOD COUNT 6.5 K/uL (4.8-10.8)
[2017-11-26 07:55] VITALS: RESP 20
[2017-11-26 07:55] LABS: ALT/SGPT 22 U/L (21-72); AST/SGOT 27 U/L (17-59); BLOOD UREA NITROGEN 21 mg/dL (9-20); CALCIUM 8.8 mg/dl (8.6-10.4); GFR AFRICAN-AMERICAN > 60; GFR NON-AFRICAN AMERICAN > 60
[2017-11-26] MEDS: Enoxaparin 40 mg Syringe SC SCH (10:10)
[2017-11-26] MEDS: Metoprolol Succinate 50 mg XL Tab PO SCH (10:10)
--- NOTE | 2017-11-26 21:31 | CP.PCM.PN ---
Subjective - Date & Time of Evaluation Date of Evaluation: 11/26/17 Time of Evaluation: 18:40 - Subjective Subjective: patient seen and examined, on medical management Objective - Vital Signs/Intake and Output Vital Signs (last 24 hours): Temp Pulse Resp BP Pulse Ox 98.5 F 80 20 118/79 98 11/26/17 15:00 11/26/17 15:00 11/26/17 15:00 11/26/17 15:00 11/26/17 15:00 Intake and Output: 11/26/17 11/27/17 18:59 06:59 Intake Total 300 Balance 300 - Medications Medications: Current Medications Enoxaparin Sodium (Lovenox) 40 mg SC DAILY [facility] Last Admin: 11/26/17 10:10 Dose: 40 mg Hydrochlorothiazide (Hydrodiuril) 25 mg PO DAILY [facility] Last Admin: 11/26/17 10:10 Dose: 25 mg Lisinopril (Zestril) 20 mg PO DAILY [facility] Last Admin: 11/26/17 10:10 Dose: 20 mg Metoprolol Succinate (Toprol Xl) 50 mg PO DAILY [facility] Last Admin: 11/26/17 10:10 Dose: 50 mg - Labs Labs: 11/26/17 07:14 11/26/17 07:14 Assessment and Plan (1) Scrotal pain Status: Acute (2) Scrotal swelling Status: Acute
[2017-11-27 07:36] LABS: ALBUMIN 3.8 g/dL (3.5-5.0); ALT/SGPT 21 U/L (21-72); AST/SGOT 28 U/L (17-59); BLOOD UREA NITROGEN 21 mg/dL (9-20); CALCIUM 8.8 mg/dl (8.6-10.4); GFR AFRICAN-AMERICAN > 60; GFR NON-AFRICAN AMERICAN > 60
[2017-11-27 07:37] LABS: BASO % 0.3 % (0.0-2.0); EOS # 0.3 K/uL (0.0-0.7); EOS % 4.6 % (0.0-4.0); HEMOGLOBIN 13.2 g/dL (12.0-18.0); LYMPH # 1.3 K/uL (1.0-4.3); LYMPH % 22.2 % (20.0-40.0); MEAN CELL VOLUME 83.7 fL (80.0-94.0); MEAN CORPUSCULAR HEMOGLOBIN 28.3 pg (27.0-31.0); MEAN CORPUSCULAR HGB CONC 33.8 g/dL (33.0-37.0); MEAN PLATELET VOLUME 10.4 fL (7.2-11.7); MONO # 0.7 K/uL (0.0-0.8); MONO % 12.2 % (0.0-10.0); NEUT # 3.6 K/uL (1.8-7.0); NEUT % 60.7 % (50.0-75.0); RBC 4.66 Mil/uL (4.40-5.90); RED CELL DISTRIBUTION WIDTH 13.7 % (11.5-14.5)
[2017-11-27] MEDS: Metoprolol Succinate 50 mg XL Tab PO SCH (10:35)
[2017-11-27] MEDS: Enoxaparin 40 mg Syringe SC SCH (10:35)
--- NOTE | 2017-11-27 15:07 | PCM.URO ---
Urology Progress Note - Objective Lab Studies: Reviewed (abdominal mass, scrotal pain, hydronephrosis plans : needs surgical removal - if not here at [facility] should be transferred to an accepting center) Lab Results Last 24 Hours: Laboratory Results - last 24 hr 11/27/17 11/27/17 07:02 07:02 WBC 6.0 RBC 4.66 Hgb 13.2 Hct 39.0 MCV 83.7 MCH 28.3 MCHC 33.8 RDW 13.7 Plt Count 152 MPV 10.4 Neut % (Auto) 60.7 Lymph % (Auto) 22.2 [place] % (Auto) 12.2 H Eos % (Auto) 4.6 H Baso % (Auto) 0.3 Neut # (Auto) 3.6 Lymph # (Auto) 1.3 [place] # (Auto) 0.7 Eos # (Auto) 0.3 Baso # (Auto) 0.0 Sodium 140 Potassium 3.8 Chloride 100 Carbon Dioxide 25 Anion Gap 19 BUN 21 H Creatinine 1.0 Est GFR ( Amer) > 60 Est GFR (Non-Af Amer) > 60 Random Glucose 89 Calcium 8.8 Total Bilirubin 0.5 AST 28 ALT 21 Alkaline Phosphatase 41 Total Protein 7.7 Albumin 3.8 Globulin 3.9 Albumin/Globulin Ratio 1.0 Intake & Output: Intake & Output 11/26/17 11/27/17 11/27/17 18:59 06:59 18:59 Intake Total 300 Balance 300 Intake: Oral 300 Other: # Voids Urine, Voided 3 3 # Bowel Movements 1 2 Vital Signs: Vital Signs - 24 hr 11/27/17 11/27/17 00:14 08:00 Temperature 98.2 F 98.5 F Pulse Rate 79 72 Respiratory 20 20 Rate Blood Pressure 116/75 107/73 O2 Sat by Pulse 99 107 H Oximetry
[2017-11-27 15:51] VITALS: BP 120/83; PULSE 86; TEMP 98.6; O2SAT 98
--- NOTE | 2017-11-27 17:41 | CP.PCM.PN ---
Subjective - Date & Time of Evaluation Date of Evaluation: 11/27/17 Time of Evaluation: 09:00 - Subjective Subjective: Alert, awake, ambulatory, no acute distress. Objective - Vital Signs/Intake and Output Vital Signs (last 24 hours): Temp Pulse Resp BP Pulse Ox 98.6 F 86 20 120/83 98 11/27/17 15:00 11/27/17 15:00 11/27/17 15:00 11/27/17 15:00 11/27/17 15:00 - Labs Labs: 11/27/17 07:02 11/27/17 07:02 Assessment and Plan - Assessment and Plan (Free Text) Assessment: Patient admitted with abdominal mass to be surgically removed, seen and examined. Alert and orientedx3, ambulates well complaints of on and off pain in the lower abdomen. Seen by the surgery, advised to follow up at the [place], [place]. Discussed with DR Cottrell , plan to discharge home today . Advised to follow up WITH pmd in 1 week. The address and telephone number of DR Gerson Argueta was given to the patient and family. Explained to follow uo JC with the oncology surgery specialyst.
--- NOTE | 2017-11-27 22:59 | CP.PCM.DIS ---
Provider - Provider Date of Admission: 11/21/17 15:55 Attending physician: Dell Cottrell MD Time Spent in preparation of Discharge (in minutes): 45 Diagnosis - Discharge Diagnosis (1) Scrotal pain Status: Acute (2) Scrotal swelling Status: Acute Hospital Course - Lab Results Lab Results: Micro Results 11/21/17 13:23 Urine Urine Culture - Final No Growth (<1,000 CFU/ML) Most Recent Lab Values WBC 6.0 K/uL (4.8-10.8) 11/27/17 07:02 RBC 4.66 Mil/uL (4.40-5.90) 11/27/17 07:02 Hgb 13.2 g/dL (12.0-18.0) 11/27/17 07:02 Hct 39.0 % (35.0-51.0) 11/27/17 07:02 MCV 83.7 fL (80.0-94.0) 11/27/17 07:02 MCH 28.3 pg (27.0-31.0) 11/27/17 07:02 MCHC 33.8 g/dL (33.0-37.0) 11/27/17 07:02 RDW 13.7 % (11.5-14.5) 11/27/17 07:02 Plt Count 152 K/uL (130-400) 11/27/17 07:02 MPV 10.4 fL (7.2-11.7) 11/27/17 07:02 Neut % (Auto) 60.7 % (50.0-75.0) 11/27/17 07:02 Lymph % (Auto) 22.2 % (20.0-40.0) 11/27/17 07:02 [place] % (Auto) 12.2 % (0.0-10.0) H 11/27/17 07:02 Eos % (Auto) 4.6 % (0.0-4.0) H 11/27/17 07:02 Baso % (Auto) 0.3 % (0.0-2.0) 11/27/17 07:02 Neut # (Auto) 3.6 K/uL (1.8-7.0) 11/27/17 07:02 Lymph # (Auto) 1.3 K/uL (1.0-4.3) 11/27/17 07:02 [place] # (Auto) 0.7 K/uL (0.0-0.8) 11/27/17 07:02 Eos # (Auto) 0.3 K/uL (0.0-0.7) 11/27/17 07:02 Baso # (Auto) 0.0 K/uL (0.0-0.2) 11/27/17 07:02 Sodium 140 mmol/L (132-148) 11/27/17 07:02 Potassium 3.8 mmol/L (3.6-5.2) 11/27/17 07:02 Chloride 100 mmol/L (98-107) 11/27/17 07:02 Carbon Dioxide 25 mmol/L (22-30) 11/27/17 07:02 Anion Gap 19 (10-20) 11/27/17 07:02 BUN 21 mg/dL (9-20) H 11/27/17 07:02 Creatinine 1.0 mg/dL (0.8-1.5) 11/27/17 07:02 Est GFR ( Amer) > 60 11/27/17 07:02 Est GFR (Non-Af Amer) > 60 11/27/17 07:02 Random Glucose 89 mg/dL (75-110) 11/27/17 07:02 Calcium 8.8 mg/dl (8.6-10.4) 11/27/17 07:02 Total Bilirubin 0.5 mg/dL (0.2-1.3) 11/27/17 07:02 AST 28 U/L (17-59) 11/27/17 07:02 ALT 21 U/L (21-72) 11/27/17 07:02 Alkaline Phosphatase 41 U/L (38-126) 11/27/17 07:02 Total Protein 7.7 g/dL (6.3-8.3) 11/27/17 07:02 Albumin 3.8 g/dL (3.5-5.0) 11/27/17 07:02 Globulin 3.9 gm/dL (2.2-3.9) 11/27/17 07:02 Albumin/Globulin Ratio 1.0 (1.0-2.1) 11/27/17 07:02 Urine Color Yellow (YELLOW) 11/21/17 14:42 Urine Clarity Clear (Clear) 11/21/17 14:42 Urine pH 6.0 (5.0-8.0) 11/21/17 14:42 Ur Specific [place] 1.013 (1.003-1.030) 11/21/17 14:42 Urine Protein Negative mg/dL (NEGATIVE) 11/21/17 14:42 Urine Glucose (UA) Normal mg/dL (Normal) 11/21/17 14:42 Urine Ketones Negative mg/dL (NEGATIVE) 11/21/17 14:42 Urine Blood Negative (NEGATIVE) 11/21/17 14:42 Urine Nitrate Negative (NEGATIVE) 11/21/17 14:42 Urine Bilirubin Negative (NEGATIVE) 11/21/17 14:42 Urine Urobilinogen Normal mg/dL (0.2-1.0) 11/21/17 14:42 Ur Leukocyte Esterase Neg Donis/uL (Negative) 11/21/17 14:42 Urine WBC (Auto) 1 /hpf (0-5) 11/21/17 14:42 Urine RBC (Auto) 1 /hpf (0-3) 11/21/17 14:42 - Hospital Course Hospital Course: Patient admitted with abdominal mass to be surgically removed, seen and examined. Alert and orientedx3, ambulates well complaints of on and off pain in the lower abdomen. Seen by the surgery, advised to follow up at the [place], [place]. , plan to discharge home today . Advised to follow up WITH pmd in 1 week. The address and telephone number of DR Gerson Argueta was given to the patient and family. Explained to follow uo JC with the oncology surgery specialyst. Discharge Exam - Head Exam Head Exam: ATRAUMATIC, NORMOCEPHALIC Discharge Plan - Discharge Medications Prescriptions: oxyCODONE/Acetaminophen [Percocet 5/325 mg Tab] 1 ea PO Q6H PRN #20 tab PRN Reason: Pain, Severe (8-10) - Follow Up Plan Condition: STABLE Disposition: HOME/ ROUTINE Instructions: Oxycodone and Acetaminophen Additional Instructions: follow up with DR Gerson Argueta [facility] may follow up with PMD in the office for further advises please send with CD of the CT scan with the patient as per DR Mata patient may call and make appointment with DR Gerson Argueta at [phone] or [phone] for possible biopsy and surgery. Referrals: Dell Cottrell MD [Staff Provider] -
== END 2017-11-27 16:45 | disposition home or self-care (01) | DRG 352 ==
LOC: C.ER 11:59 → C.9E 15:55 → C.3T 16:41
PROVIDERS: ADMIT Internal Medicine; ATTEND Internal Medicine
PROC: 3E0234Z Introduction of Serum, Toxoid and Vaccine into Muscle, Percutaneous Approach (ICD-10-PCS; principal; 2017-11-23)
DX: N50.82 Scrotal pain (principal); N13.30 Unspecified hydronephrosis; N50.819 Testicular pain, unspecified; I10 Essential (primary) hypertension; Z23 Encounter for immunization